=== PATIENT | female | born 1945 | race Caucasian/White ===

== ENCOUNTER 2017-10-20 12:26 | Emergency (ER) | payer MEDICARE, OTHER ==
[~2017-10-20] VITALS: Ht 154.9 cm; Wt 98.0 kg
[~2017-10-20 12:26] MED LIST: ASPIRIN EC81 MG PO; CELEBREX200 MG PO; CRESTOR20 MG PO; ECONAZOLE NITRA15 GM; FLUOXETINE HCL40 MG PO; FOLIC ACID1 MG PO; KETOCONAZOLE120 ML; METHOTREXATE2.5 MG PO; METOPROLOL SUCC25 MG PO; METOPROLOL TART25 MG PO; NORCO 7.5-3251 EACH PO; OMEPRAZOLE20 MG PO; OXYBUTYNIN CHLOR5 MG PO; PANTOPRAZOLE SO40 MG PO; PERCOCET 5-3251 EACH PO; PLAQUENIL200 MG PO; PREDNISONE5 MG PO; PROBIOTIC1 EAC1 PO; PYRIDIUM200 MG PO; REMICADE100 MG/10 IV; ROSUVASTATIN CA10 MG PO; SIMPONI AR50 MG/4 ML IV; SIMPONI50 MG/0.1 SUB-Q; TRAMADOL HCL50 MG; TRAMADOL HCL50 MG PO; ZOFRAN ODT8 MG PO
--- OUTSIDE RECORDS SUMMARY | 2017-10-20 12:28 | XMS ---
Demographics + + + | Address | [address] | | | [place] [address] | + + + | Preferred Language | Unknown | + + + | Marital Status | Unknown | + + + | Oriental Orthodox Affiliation | Unknown | + + + | Race | Unknown | + + + | Ethnic Group | Unknown | + + + Author + + + | Author | [facility] | + + + | Organization | [facility] | + + + | Address | [address] | | | [place] [address] | + + + | Phone | | + + + Care Team Providers + + + + | Care Model Dresser Name | Role | Phone | + + + + Unavailable | Unavailable | + + + + PROBLEMS +---------+ + + +--------+ + + | Type | Condition | ICD9-CM | [id number] | Onset | Condition | SNOMED | | | | Code | Code | Dates | Status | Code | +---------+ + + +--------+ + + | Problem | High risk | Z79.899 | | | Active | 394212080 | | | medication | | | | | | | | use | | | | | | +---------+ + + +--------+ + + | Problem | History of | Z86.19 | | | Active | 11295563 | | | | | | | | | | | Helicobact | | | | | | | | er pylori | | | | | | | | infection | | | | | | +---------+ + + +--------+ + + | Problem | Osteoporos | | M81.0 | | Active | 01485420 | | | is | | | | | | +---------+ + + +--------+ + + | Problem | Gastroesop | K21.9 | | | Active | 237915962 | | | hageal | | | | | | | | reflux | | | | | | +---------+ + + +--------+ + + | 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 | | | Active | 25251923 | | | cosis, | | | | | | | | progressiv | | | | | | | | e | | | | | | +---------+ + + +--------+ + + | Problem | Fatigue | | R53.83 | | Active | 01275198 | +---------+ + + +--------+ + + | Problem | ASCVD | I25.10 | | | Active | 29005028 | | | (arteriosc | | | | | | | | lerotic | | | | | | | | cardiovasc | | | | | | | | ular | | | | | | | | disease) | | | | | | +---------+ + + +--------+ + + | Problem | Early | | R68.81 | | Active | 290219312 | | | satiety | | | | | | +---------+ + + +--------+ + + | Problem | Postmenopa | | Z78.0 | | Active | 60746804 | | | usal | | | | | | +---------+ + + +--------+ + + | Problem | 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 | | | Active | 360580720 | | | ia | | | | | | +---------+ + + +--------+ + + | Problem | Solitary | | R91.1 | | Active | 682311173 | | | pulmonary | | | | | | | | nodule | | | | | | +---------+ + + +--------+ + + | Problem | Chronic | | G89.4 | | Active | 981289619 | | | pain | | | | | | | | syndrome | | | | | | +---------+ + + +--------+ + + | Problem | Stage III | N18.3 | | | Active | 592894817 | | | chronic | | | | | | | | kidney | | | | | | | | disease | | | | | | +---------+ + + +--------+ + + | Problem | Rheumatoid | M06.9 | | | Active | 23453997 | | | arthritis | | | | | | +---------+ + + +--------+ + + | Problem | Abnormal | R79.89 | | | Active | 554976474 | | | liver | | | | | | | | function | | | | | | | | test | | | | | | +---------+ + + +--------+ + + | Problem | Immunosupp | D89.9 | | | Active | 659861352 | | | ressed | | | | | | | | status | | | | | | +---------+ + + +--------+ + + | Problem | Depression | | F41.8 | | Active | 741328283 | | | with | | | | | | | | anxiety | | | | | | +---------+ + + +--------+ + + | Problem | Tubular | D12.6 | | | Active | 303601672 | | | adenoma of | | | | | | | | colon | | | | | | +---------+ + + +--------+ + + | Problem | Tinea | | B35.3 | | Active | 1587378 | | | pedis | | | | | | +---------+ + + +--------+ + + | Problem | Hypothyroi | | E03.9 | | Active | 33820812 | | | dism | | | | | | +---------+ + + +--------+ + + | Problem | Tubular | D36.9 | | | Active | 569208191 | | | adenoma | | | | | | +---------+ + + +--------+ + + | Problem | Nausea and | | R11.2 | | Active | 08256632 | | | vomiting | | | | | | +---------+ + + +--------+ + + | Problem | Hypertensi | | I10 | | Active | 67903731 | | | on | | | | | | +---------+ + + +--------+ + + | Problem | Eczematous | L30.9 | | | Active | 370825029 | | | | | | | | | | | dermatitis | | | | | | +---------+ + + +--------+ + + | Problem | Nummular | | L30.0 | | Active | 58642905 | | | dermatitis | | | | | | +---------+ + + +--------+ + + ALLERGIES + + + + +--------+ | Substance | Reaction | Event Type | Date | Status | + + + + +--------+ | Morphine | racing heart | Drug Allergy | May, | Active | + + + + +--------+ | Lipitor | hives | Drug Allergy | May, | Active | + + + + +--------+ SOCIAL HISTORY No smoking Hx information available PLAN OF CARE + +---------+ | Activity | Details | + +---------+ +---+ | | +---+ + + + | Follow Up | 2-4 Weeks Reason:null | + + + VITAL SIGNS + + + + | Height | 5 ft 1 in in | 2017-06-05 | + + + + | Weight | 218.9 lbs | 2017-06-05 | + + + + | BMI | 41.36 kg/m2 | 2017-06-05 | + + + + | Temperature | 98.0 degrees Fahrenheit | 2017-06-05 | + + + + | Heart Rate | 56 /min | 2017-06-05 | + + + + | Blood pressure systolic | 133 mm Hg | 2017-06-05 | + + + + | Blood pressure diastolic | 79 mm Hg | 2017-06-05 | + + + + MEDICATIONS + + + + + + + +--------+ | Medicati | Instruct | Dosage | Frequenc | Start | End Date | Duration | Status | | on | ions | | y | Date | | | | + + + + + + + +--------+ | Fosamax | Orally | 1 tablet | | Jan, | Jun, | 90 days | Active | | 70 MG | once a | | | 2016 | 2017 | | | | | week | | | | | | | + + + + + + + +--------+ | Oxybutyn | Orally | 1 tablet | 12h | | | | Active | | in | Twice a | | | | | | | | Chloride | day | | | | | | | | 5 MG | | | | | | | | + + + + + + + +--------+ | Aspirin | Orally | 1 tablet | 24h | | | | Active | | 81 mg | Once a | | | | | | | | | day | | | | | | | + + + + + + + +--------+ | Hydroxyc | Orally | 1 tablet | 24h | | | | Active | | hloroqui | Once a | with | | | | | | | ne | day | food or | | | | | | | Sulfate | | milk | | | | | | | 200 MG | | | | | | | | + + + + + + + +--------+ | Folic | Orally | 1 tablet | 24h | | | | Active | | Acid 1 | Once a | | | | | | | | MG | day | | | | | | | + + + + + + + +--------+ | Metoprol | Orally | 1 tablet | 12h | | | | Active | | ol | Twice a | | | | | | | | Tartrate | day | | | | | | | | 25 MG | | | | | | | | + + + + + + + +--------+ | PredniSO | Orally | 1 ml | 24h | | | | Active | | NE 5 | Once a | | | | | | | | MG/ML | day | | | | | | | + + + + + + + +--------+ | Rosuvast | Orally | 1 tablet | 24h | | | | Active | | atin | Once a | | | | | | | | Calcium | day | | | | | | | | 10 MG | | | | | | | | + + + + + + + +--------+ | Ondanset | | | | | | | Active | | corine 8 MG | | | | | | | | + + + + + + + +--------+ | Celecoxi | Orally | 1 | 24h | | | | Active | | b 200 MG | Once a | capsule | | | | | | | | day | | | | | | | + + + + + + + +--------+ | Pepcid | Orally | 1 tablet | 24h | 12 Lennox, | | 30 | Active | | 40 mg | Once a | | | 2016 | | day(s) | | | | day | | | | | | | + + + + + + + +--------+ | Tramadol | Orally | 1 tablet | 6h | | 16 Aug, | 30 days | Active | | HCl 50 | every 6 | as | | | 2016 | | | | mg | hrs | needed | | | | | | + + + + + + + +--------+ RESULTS + +--------+ + + | Name | Result | Date | Reference Range | + +--------+ + + | CBC with | | 2017-06-05 | | | Differential Count | | | | + +--------+ + + PROCEDURES + + + + + | Procedure | Date Ordered | Related Diagnosis | Body Site | + + + + + | Office Visit, Est | June 05, 2017 | | | | Pt., Level 3 | | | | + + + + + | [facility] MED/CURRENT | June 05, 2017 | | | | MED MERGE | | | | + + + + + IMMUNIZATIONS No Known Immunizations"
--- OUTSIDE RECORDS SUMMARY | 2017-10-20 12:28 | XMS ---
Demographics + + + | Address | [address] | | | [place] [address] | + + + | Preferred Language | Unknown | + + + | Marital Status | Unknown | + + + | Denominational Affiliation | Unknown | + + + | Race | Unknown | + + + | Ethnic Group | Unknown | + + + Author + + + | Author | [facility] | + + + | Organization | [facility] | + + + | Address | [address] | | | [place] [address] | + + + | Phone | | + + + Care Team Providers + + + + | Care Paddle Dyeing Machine Operator Name | Role | Phone | + + + + Unavailable | Unavailable | + + + + PROBLEMS +---------+ + + +--------+ + + | Type | Condition | ICD9-CM | [id number] | Onset | Condition | SNOMED | | | | Code | Code | Dates | Status | Code | +---------+ + + +--------+ + + | Problem | High risk | Z79.899 | | | Active | [id number] | | | medication | | | | | | | | use | | | | | | +---------+ + + +--------+ + + | Problem | History of | Z86.19 | | | Active | 73184329 | | | | | | | | | | | Helicobact | | | | | | | | er pylori | | | | | | | | infection | | | | | | +---------+ + + +--------+ + + | Problem | Osteoporos | | M81.0 | | Active | 23109898 | | | is | | | | | | +---------+ + + +--------+ + + | Problem | Gastroesop | K21.9 | | | Active | 215162892 | | | hageal | | | | | | | | reflux | | | | | | +---------+ + + +--------+ + + | 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 | | | Active | 66558275 | | | cosis, | | | | | | | | progressiv | | | | | | | | e | | | | | | +---------+ + + +--------+ + + | Problem | Fatigue | | R53.83 | | Active | 18898845 | +---------+ + + +--------+ + + | Problem | ASCVD | I25.10 | | | Active | 63908028 | | | (arteriosc | | | | | | | | lerotic | | | | | | | | cardiovasc | | | | | | | | ular | | | | | | | | disease) | | | | | | +---------+ + + +--------+ + + | Problem | Early | | R68.81 | | Active | 271220717 | | | satiety | | | | | | +---------+ + + +--------+ + + | Problem | Postmenopa | | Z78.0 | | Active | 30141060 | | | usal | | | | | | +---------+ + + +--------+ + + | Problem | 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 | | | Active | 922798721 | | | ia | | | | | | +---------+ + + +--------+ + + | Problem | Solitary | | R91.1 | | Active | 545949457 | | | pulmonary | | | | | | | | nodule | | | | | | +---------+ + + +--------+ + + | Problem | Chronic | | G89.4 | | Active | 275746098 | | | pain | | | | | | | | syndrome | | | | | | +---------+ + + +--------+ + + | Problem | Stage III | N18.3 | | | Active | 359499402 | | | chronic | | | | | | | | kidney | | | | | | | | disease | | | | | | +---------+ + + +--------+ + + | Problem | Rheumatoid | M06.9 | | | Active | 13169017 | | | arthritis | | | | | | +---------+ + + +--------+ + + | Problem | Abnormal | R79.89 | | | Active | 925233496 | | | liver | | | | | | | | function | | | | | | | | test | | | | | | +---------+ + + +--------+ + + | Problem | Immunosupp | D89.9 | | | Active | 321820218 | | | ressed | | | | | | | | status | | | | | | +---------+ + + +--------+ + + | Problem | Depression | | F41.8 | | Active | 926872609 | | | with | | | | | | | | anxiety | | | | | | +---------+ + + +--------+ + + | Problem | Tubular | D12.6 | | | Active | 688071261 | | | adenoma of | | | | | | | | colon | | | | | | +---------+ + + +--------+ + + | Problem | Tinea | | B35.3 | | Active | 2113301 | | | pedis | | | | | | +---------+ + + +--------+ + + | Problem | Hypothyroi | | E03.9 | | Active | 55570855 | | | dism | | | | | | +---------+ + + +--------+ + + | Problem | Tubular | D36.9 | | | Active | 834459318 | | | adenoma | | | | | | +---------+ + + +--------+ + + | Problem | Nausea and | | R11.2 | | Active | 76731528 | | | vomiting | | | | | | +---------+ + + +--------+ + + | Problem | Hypertensi | | I10 | | Active | 52784585 | | | on | | | | | | +---------+ + + +--------+ + + | Problem | Eczematous | L30.9 | | | Active | 067324452 | | | | | | | | | | | dermatitis | | | | | | +---------+ + + +--------+ + + | Problem | Nummular | | L30.0 | | Active | 21590262 | | | dermatitis | | | | | | +---------+ + + +--------+ + + ALLERGIES + + + + +--------+ | Substance | Reaction | Event Type | Date | Status | + + + + +--------+ | Morphine | racing heart | Drug Allergy | Jun, | Active | + + + + +--------+ | Lipitor | hives | Drug Allergy | Jun, | Active | + + + + +--------+ SOCIAL HISTORY No smoking Hx information available PLAN OF CARE + +---------+ | Activity | Details | + +---------+ +---+ | | +---+ + + + | Follow Up | 2 Months Reason:null | + + + VITAL SIGNS + + + + | Height | 5 ft 1 in in | 2017-07-05 | + + + + | Weight | 219.8 lbs | 2017-07-05 | + + + + | BMI | 41.53 kg/m2 | 2017-07-05 | + + + + | Temperature | 97.4 degrees Fahrenheit | 2017-07-05 | + + + + | Heart Rate | 55 /min | 2017-07-05 | + + + + | Blood pressure systolic | 140 mm Hg | 2017-07-05 | + + + + | Blood pressure diastolic | 82 mm Hg | 2017-07-05 | + + + + MEDICATIONS + [...] Pepcid | Orally | 1 tablet | 12h | 12 Lennox, | | 30 days | Active | | 40 mg | bid | | | 2017 | | | | + + + [...] +--------+ | Tramadol | Orally | 1 | 8h | 23 Jun, | 22 Sep, | 30 | Active | | HCl 50 | tid | tablets | | 2017 | 2017 | day(s) | | | mg | | as | | | | | | | | | needed | | | | | | | | | for pain | | | | | | + [...] | 1 tablet | | Jan, | 1 Jun, | 90 days | Active | | 70 MG | once a | | | 2017 | 2018 | | | | | week | [...] Range | + +--------+ + + | Basic Metabolic | | 2017-07-05 | | | Panel (8) | | | | + +--------+ + + | Calcium, Serum | | | | + +--------+ + + | Glucose, Serum | | | | + +--------+ + + | BUN | | | | + +--------+ + + | Potassium, Serum | | | | + +--------+ + + | Sodium, Serum | | | | + +--------+ + + | Chloride, Serum | | | | + +--------+ + + | Creatinine, Serum | | | | + +--------+ + + | Carbon Dioxide, | | | | | Total | | | | + +--------+ + + | BUN/Creatinine | | | | | Ratio | | | | + +--------+ + + PROCEDURES + + + + + | Procedure | Date Ordered | Related Diagnosis | Body Site | + + + + + | Office Visit, Est | Jul 05, 2017 | | | | Pt., Level 4 | | | | + + + + + | [facility] MED/CURRENT | Jul 05, 2017 | | | | MED MERGE | | | | + + + + + IMMUNIZATIONS No Known Immunizations"
--- OUTSIDE RECORDS SUMMARY | 2017-10-20 12:28 | XMS ---
Demographics + + + | Address | [address] | | | [place] [address] | + + + | Preferred Language | Unknown | + + + | Marital Status | Unknown | + + + | Mu-Ism Affiliation | Unknown | + + + | Race | Unknown | + + + | Ethnic Group | Unknown | + + + Author + + + | Author | [facility] | + + + | Organization | [facility] | + + + | Address | [address] | | | [place] [address] | + + + | Phone | | + + + Care Team Providers + + + + | Care Braille Proofreader Name | Role | Phone | + + + + Unavailable | Unavailable | + + + + PROBLEMS +---------+ + + +--------+ + + | Type | Condition | ICD9-CM | [id number] | Onset | Condition | SNOMED | | | | Code | Code | Dates | Status | Code | +---------+ + + +--------+ + + | Problem | High risk | Z79.899 | | | Active | 242214148 | | | medication | | | | | | | | use | | | | | | +---------+ + + +--------+ + + | Problem | History of | Z86.19 | | | Active | 90537577 | | | | | | | | | | | Helicobact | | | | | | | | er pylori | | | | | | | | infection | | | | | | +---------+ + + +--------+ + + | Problem | Osteoporos | | M81.0 | | Active | 09938349 | | | is | | | | | | +---------+ + + +--------+ + + | Problem | Gastroesop | K21.9 | | | Active | 575561043 | | | hageal | | | | | | | | reflux | | | | | | +---------+ + + +--------+ + + | 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 | | | Active | 57885697 | | | cosis, | | | | | | | | progressiv | | | | | | | | e | | | | | | +---------+ + + +--------+ + + | Problem | Fatigue | | R53.83 | | Active | 72418258 | +---------+ + + +--------+ + + | Problem | ASCVD | I25.10 | | | Active | 08184721 | | | (arteriosc | | | | | | | | lerotic | | | | | | | | cardiovasc | | | | | | | | ular | | | | | | | | disease) | | | | | | +---------+ + + +--------+ + + | Problem | Early | | R68.81 | | Active | 181035239 | | | satiety | | | | | | +---------+ + + +--------+ + + | Problem | Postmenopa | | Z78.0 | | Active | 33002596 | | | usal | | | | | | +---------+ + + +--------+ + + | Problem | 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 | | | Active | 631135430 | | | ia | | | | | | +---------+ + + +--------+ + + | Problem | Solitary | | R91.1 | | Active | 440124816 | | | pulmonary | | | | | | | | nodule | | | | | | +---------+ + + +--------+ + + | Problem | Chronic | | G89.4 | | Active | 580461685 | | | pain | | | | | | | | syndrome | | | | | | +---------+ + + +--------+ + + | Problem | Stage III | N18.3 | | | Active | 164580013 | | | chronic | | | | | | | | kidney | | | | | | | | disease | | | | | | +---------+ + + +--------+ + + | Problem | Rheumatoid | M06.9 | | | Active | 96900131 | | | arthritis | | | | | | +---------+ + + +--------+ + + | Problem | Abnormal | R79.89 | | | Active | 344498429 | | | liver | | | | | | | | function | | | | | | | | test | | | | | | +---------+ + + +--------+ + + | Problem | Immunosupp | D89.9 | | | Active | 658613169 | | | ressed | | | | | | | | status | | | | | | +---------+ + + +--------+ + + | Problem | Depression | | F41.8 | | Active | 850442539 | | | with | | | | | | | | anxiety | | | | | | +---------+ + + +--------+ + + | Problem | Tubular | D12.6 | | | Active | 330182312 | | | adenoma of | | | | | | | | colon | | | | | | +---------+ + + +--------+ + + | Problem | Tinea | | B35.3 | | Active | 6834724 | | | pedis | | | | | | +---------+ + + +--------+ + + | Problem | Hypothyroi | | E03.9 | | Active | 27978037 | | | dism | | | | | | +---------+ + + +--------+ + + | Problem | Tubular | D36.9 | | | Active | 136604896 | | | adenoma | | | | | | +---------+ + + +--------+ + + | Problem | Nausea and | | R11.2 | | Active | 79677232 | | | vomiting | | | | | | +---------+ + + +--------+ + + | Problem | Hypertensi | | I10 | | Active | 68784709 | | | on | | | | | | +---------+ + + +--------+ + + | Problem | Eczematous | L30.9 | | | Active | 048244312 | | | | | | | | | | | dermatitis | | | | | | +---------+ + + +--------+ + + | Problem | Nummular | | L30.0 | | Active | 41924657 | | | dermatitis | | | [...] + + + | Follow Up | 1 Week Reason:null | + + + VITAL SIGNS + + + + | Height | 5 ft 1 in in | 2017-05-29 | + + + + | Weight | 220.3 lbs | 2017-05-29 | + + + + | BMI | 41.62 kg/m2 | 2017-05-29 | + + + + | Temperature | 97.2 degrees Fahrenheit | 2017-05-29 | + + + + | Heart Rate | 57 /min | 2017-05-29 | + + + + | Blood pressure systolic | 124 mm Hg | 2017-05-29 | + + + + | Blood pressure diastolic | 74 mm Hg | 2017-05-29 | + + + + MEDICATIONS + [...] 1 tablet | 6h | | 16 Jun, | 30 days | Active | | [...] + + + + + +--------+ | Clindamy | Orally | 3 | 8h | | | | Active | | sierra HCl | three | capsules | | | | | | | 150 MG | times a | | | | | | [...] mg | Once a | | | 2017 | | day(s) | | | | [...] + + + + + +--------+ | Cephalex | Orally | 2 tablet | 24h | | | | Active | | in 500 | once | | | | | | | | MG | daily | | | | | | | [...] + + + + + +--------+ RESULTS No Results PROCEDURES + + + + + | Procedure | Date Ordered | Related Diagnosis | Body Site | + + + + + | Office Visit, Est | May 29, 2017 | | | | Pt., Level 3 | | | | + + + + + | [facility] MED/CURRENT | May 29, 2017 | | | | MED MERGE | | | | + + + + + IMMUNIZATIONS No Known Immunizations"
--- OUTSIDE RECORDS SUMMARY | 2017-10-20 12:44 | XMS ---
Demographics + + + | Address | [address] | | | [place] [address] | + + + | Preferred Language | Unknown | + + + | Marital Status | Unknown | + + + | Islam Affiliation | Unknown | + + + | Race | Unknown | + + + | Ethnic Group | Unknown | + + + Author + + + | Author | [facility] | + + + | Organization | [facility] | + + + | Address | [address] | | | [place] [address] | + + + | Phone | | + + + Care Team Providers + + + + | Care Scalder Name | Role | Phone | + + + + Unavailable | Unavailable | + + + + PROBLEMS +---------+ + + +--------+ + + | Type | Condition | ICD9-CM | [id number] | Onset | Condition | SNOMED | | | | Code | Code | Dates | Status | Code | +---------+ + + +--------+ + + | Problem | High risk | Z79.899 | | | Active | 622783215 | | | medication | | | | | | | | use | | | | | | +---------+ + + +--------+ + + | Problem | History of | Z86.19 | | | Active | 75243048 | | | | | | | | | | | Helicobact | | | | | | | | er pylori | | | | | | | | infection | | | | | | +---------+ + + +--------+ + + | Problem | Osteoporos | | M81.0 | | Active | 75472457 | | | is | | | | | | +---------+ + + +--------+ + + | Problem | Gastroesop | K21.9 | | | Active | 689264341 | | | hageal | | | | | | | | reflux | | | | | | +---------+ + + +--------+ + + | 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 | | | Active | 86390737 | | | cosis, | | | | | | | | progressiv | | | | | | | | e | | | | | | +---------+ + + +--------+ + + | Problem | Fatigue | | R53.83 | | Active | 82984205 | +---------+ + + +--------+ + + | Problem | ASCVD | I25.10 | | | Active | 61577391 | | | (arteriosc | | | | | | | | lerotic | | | | | | | | cardiovasc | | | | | | | | ular | | | | | | | | disease) | | | | | | +---------+ + + +--------+ + + | Problem | Early | | R68.81 | | Active | 451918728 | | | satiety | | | | | | +---------+ + + +--------+ + + | Problem | Postmenopa | | Z78.0 | | Active | 04303947 | | | usal | | | | | | +---------+ + + +--------+ + + | Problem | 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 | | | Active | 424275134 | | | ia | | | | | | +---------+ + + +--------+ + + | Problem | Solitary | | R91.1 | | Active | 784211254 | | | pulmonary | | | | | | | | nodule | | | | | | +---------+ + + +--------+ + + | Problem | Chronic | | G89.4 | | Active | 411972872 | | | pain | | | | | | | | syndrome | | | | | | +---------+ + + +--------+ + + | Problem | Stage III | N18.3 | | | Active | 529869143 | | | chronic | | | | | | | | kidney | | | | | | | | disease | | | | | | +---------+ + + +--------+ + + | Problem | Rheumatoid | M06.9 | | | Active | 09068787 | | | arthritis | | | | | | +---------+ + + +--------+ + + | Problem | Abnormal | R79.89 | | | Active | 585354881 | | | liver | | | | | | | | function | | | | | | | | test | | | | | | +---------+ + + +--------+ + + | Problem | Immunosupp | D89.9 | | | Active | 351851771 | | | ressed | | | | | | | | status | | | | | | +---------+ + + +--------+ + + | Problem | Depression | | F41.8 | | Active | 279687097 | | | with | | | | | | | | anxiety | | | | | | +---------+ + + +--------+ + + | Problem | Tubular | D12.6 | | | Active | 263756086 | | | adenoma of | | | | | | | | colon | | | | | | +---------+ + + +--------+ + + | Problem | Tinea | | B35.3 | | Active | 7093383 | | | pedis | | | | | | +---------+ + + +--------+ + + | Problem | Hypothyroi | | E03.9 | | Active | 64750038 | | | dism | | | | | | +---------+ + + +--------+ + + | Problem | Tubular | D36.9 | | | Active | 841955609 | | | adenoma | | | | | | +---------+ + + +--------+ + + | Problem | Nausea and | | R11.2 | | Active | 38095628 | | | vomiting | | | | | | +---------+ + + +--------+ + + | Problem | Hypertensi | | I10 | | Active | 84806943 | | | on | | | | | | +---------+ + + +--------+ + + | Problem | Eczematous | L30.9 | | | Active | 269005160 | | | | | | | | | | | dermatitis | | | | | | +---------+ + + +--------+ + + | Problem | Nummular | | L30.0 | | Active | 45939838 | | | dermatitis | | | | | | +---------+ + + +--------+ + + ALLERGIES Unknown Allergies SOCIAL HISTORY No smoking Hx information available PLAN OF CARE VITAL SIGNS MEDICATIONS Unknown Medications RESULTS No Results PROCEDURES No Known procedures IMMUNIZATIONS No Known Immunizations"
--- OUTSIDE RECORDS SUMMARY | 2017-10-20 12:44 | XMS ---
Demographics + + + | Address | [address] | | | [place] [address] | + + + | Preferred Language | Unknown | + + + | Marital Status | Unknown | + + + | Hoahaoism Affiliation | Unknown | + + + | Race | Unknown | + + + | Ethnic Group | Unknown | + + + Author + + + | Author | [facility] | + + + | Organization | [facility] | + + + | Address | [address] | | | [place] [address] | + + + | Phone | | + + + Care Team Providers + + + + | Care Hand Tile Maker Name | Role | Phone | + + + + Unavailable | Unavailable | + + + + PROBLEMS +---------+ + + +--------+ + + | Type | Condition | ICD9-CM | [id number] | Onset | Condition | SNOMED | | | | Code | Code | Dates | Status | Code | +---------+ + + +--------+ + + | Problem | High risk | Z79.899 | | | Active | [id number] | | | medication | | | | | | | | use | | | | | | +---------+ + + +--------+ + + | Problem | History of | Z86.19 | | | Active | [id number] | | | | | | | | 4926138 | | | Helicobact | | | | | | | | er pylori | | | | | | | | infection | | | | | | +---------+ + + +--------+ + + | Problem | Osteoporos | | M81.0 | | Active | 84524430 | | | is | | | | | | +---------+ + + +--------+ + + | Problem | Gastroesop | K21.9 | | | Active | 552522516 | | | hageal | | | | | | | | reflux | | | | | | +---------+ + + +--------+ + + | 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 | | | Active | 17604778 | | | cosis, | | | | | | | | progressiv | | | | | | | | e | | | | | | +---------+ + + +--------+ + + | Problem | Fatigue | | R53.83 | | Active | 71794016 | +---------+ + + +--------+ + + | Problem | ASCVD | I25.10 | | | Active | 92504174 | | | (arteriosc | | | | | | | | lerotic | | | | | | | | cardiovasc | | | | | | | | ular | | | | | | | | disease) | | | | | | +---------+ + + +--------+ + + | Problem | Early | | R68.81 | | Active | 481315065 | | | satiety | | | | | | +---------+ + + +--------+ + + | Problem | Postmenopa | | Z78.0 | | Active | 76538541 | | | usal | | | | | | +---------+ + + +--------+ + + | Problem | 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 | | | Active | 438132475 | | | ia | | | | | | +---------+ + + +--------+ + + | Problem | Solitary | | R91.1 | | Active | 539742572 | | | pulmonary | | | | | | | | nodule | | | | | | +---------+ + + +--------+ + + | Problem | Chronic | | G89.4 | | Active | 937282550 | | | pain | | | | | | | | syndrome | | | | | | +---------+ + + +--------+ + + | Problem | Stage III | N18.3 | | | Active | 424629160 | | | chronic | | | | | | | | kidney | | | | | | | | disease | | | | | | +---------+ + + +--------+ + + | Problem | Rheumatoid | M06.9 | | | Active | 99327076 | | | arthritis | | | | | | +---------+ + + +--------+ + + | Problem | Abnormal | R79.89 | | | Active | 878490433 | | | liver | | | | | | | | function | | | | | | | | test | | | | | | +---------+ + + +--------+ + + | Problem | Immunosupp | D89.9 | | | Active | 773928575 | | | ressed | | | | | | | | status | | | | | | +---------+ + + +--------+ + + | Problem | Depression | | F41.8 | | Active | 556477776 | | | with | | | | | | | | anxiety | | | | | | +---------+ + + +--------+ + + | Problem | Tubular | D12.6 | | | Active | 321136833 | | | adenoma of | | | | | | | | colon | | | | | | +---------+ + + +--------+ + + | Problem | Tinea | | B35.3 | | Active | 8989463 | | | pedis | | | | | | +---------+ + + +--------+ + + | Problem | Hypothyroi | | E03.9 | | Active | 59271819 | | | dism | | | | | | +---------+ + + +--------+ + + | Problem | Tubular | D36.9 | | | Active | 05257996 | | | adenoma | | | | | | +---------+ + + +--------+ + + | Problem | Nausea and | | R11.2 | | Active | 85769334 | | | vomiting | | | | | | +---------+ + + +--------+ + + | Problem | Hypertensi | | I10 | | Active | 30364369 | | | on | | | | | | +---------+ + + +--------+ + + | Problem | Eczematous | L30.9 | | | Active | 712299238 | | | | | | | | | | | dermatitis | | | | | | +---------+ + + +--------+ + + | Problem | Nummular | | L30.0 | | Active | 62653332 | | | dermatitis | | | | | | +---------+ + + +--------+ + + ALLERGIES No Information SOCIAL HISTORY Never Assessed PLAN OF CARE VITAL SIGNS MEDICATIONS Unknown Medications RESULTS No Results PROCEDURES + + +--------+ + | Procedure | Date Ordered | Result | Body Site | + + +--------+ + | Influenza Medicare | Aug 18, 2017 | | | + + +--------+ + | ADMN FLU VAC | Aug 18, 2017 | | | + + +--------+ + IMMUNIZATIONS + + + + + | Vaccine | Route | Administration Date | Status | + + + + + | Influenza Medicare | IM Intramuscular | Aug 18, 2017 | Administered | + + + + + MEDICAL (GENERAL) HISTORY + + +-------+ | Type | Description | Date | + + +-------+ | Medical History | rheumatoid arthritis: | | | | 03/08/2016 3:50:57 PM > | | | | rheumatology | | | | appointment [facility], | | | | golimumab 200MG | | + + +-------+ | Medical History | abnormal liver associated | | | | tests | | + + +-------+ | Medical History | chronic constipation | | + + +-------+ | Medical History | ASCVD | | + + +-------+ | Medical History | early satiety | | + + +-------+ | Medical History | fatigue, chronic | | + + +-------+ | Medical History | gastroesophageal reflux | | + + +-------+ | Medical History | history of helical Dr. | | | | pylori | | + + +-------+ | Medical History | hypertension | | + + +-------+ | Medical History | history of chronic nausea | | | | and vomiting | | + + +-------+ | Medical History | R. eczematous dermatitis | | + + +-------+ | Medical History | tinea pedis | | + + +-------+ | Medical History | tubular adenoma of the | | | | colon | | + + +-------+ | Medical History | previously on methotrexate | | + + +-------+ | Medical History | 2012: LEFT leg fracture, | | | | severe, TKR [facility]. | | + + +-------+ | Medical History | 2013: [place] Fever: | | | | Cocciodiodes. Patient was | | | | immunosuppressed | | + + +-------+ | Medical History | hypothyroidism with a TSH | | | | of 4.97 and a T4 of 1.15. | | + + +-------+ | Medical History | echo 05/17/16: LVEF 55-60%, | | | | grade 1 diastolic | | | | abnormality, sclerotic | | | | aortic valve, mild nodular | | | | calcification of the mitral | | | | valve, | | + + +-------+ | Medical History | 05/20/16: ERCP: Jazmyne, | | | | Quinn, impacted | | | | gallstone (s/p choly) | | + + +-------+ | Medical History | Started [facility] for RA | | + + +-------+ | Medical History | 09/10/16-09/12/16: [facility] | | | | admission Dr. Meyer: | | | | Immunosuppressant | | | | medications | | | | Simponi/golimumab for her | | | | rheumatoid arthritis: | | | | Sepsis secondary to viral | | | | etiology in the setting of | | | | immunosuppressant | | | | medication, other comorbid | | | | conditions: Acute | | | | dehydration, hypokalemia, | | | | chronic kidney disease | | | | stage III, incidental | | | | pulmonary nodule. | | | | Temperature of 102.3, | | | | pneumobilia and CT scan of | | | | the abdomen after recent | | | | ERCP for biliary stones. 5 | | | | mm pulmonary nodule right | | | | middle lobe. Treated with | | | | Zosyn transition to | | | | cefepime, rehydration, | | | | replace the potassium. | | | | Patient also on | | | | hydroxychloroquine, | | | | methotrexate, tramadol. | | + + +-------+ | Medical History | chronic pain syndrome: | | | | Severe osteoarthritis. On | | | | Ultram, currently | | | | prescribed by this office. | | + + +-------+ | Medical History | 12/26/16: [facility], negative | | | | mammogram | | + + +-------+ | Medical History | 12/26/16 Nrmal mammogram | | + + +-------+ | Medical History | 02/02/2017 3:20:02 PM > | | | | osteoporosis by DEXA scan, | | | | [facility] | | + + +-------+ | Surgical History | L Leg Surgery | | + + +-------+ | Surgical History | Stent placed | 12/20 | + + +-------+ | Surgical History | Kidney Stone Removal | | + + +-------+ | Surgical History | Appendectomy | | + + +-------+ | Surgical History | Cholesystecomy | | + + +-------+ | Surgical History | Hernia Repair | | + + +-------+ | Surgical History | lymph nodes removed from | | | | left armpit | | + + +-------+ | Hospitalization History | Natural Child x3 | | + + +-------+ | Hospitalization History | See Above | | + + +-------+ | Hospitalization History | High temperture, vomiting | | + + +-------+ | Hospitalization History | ER visit [facility] | 04-17 | + + +-------+"
== END 2017-10-20 13:30 | disposition home or self-care (01) ==
LOC: ED 12:26
DX: S80.11XA Contusion of right lower leg, initial encounter (principal); M06.9 Rheumatoid arthritis, unspecified; I10 Essential (primary) hypertension; Z88.5 Allergy status to narcotic agent; Z88.8 Allergy status to other drugs, medicaments and biological substances; Z79.82 Long term (current) use of aspirin; W22.8XXA Striking against or struck by other objects, initial encounter; Z90.49 Acquired absence of other specified parts of digestive tract; Z79.52 Long term (current) use of systemic steroids; Z79.899 Other long term (current) drug therapy
CPT/HCPCS: 99282

== ENCOUNTER 2019-01-03 02:36 | Emergency (ER) | payer MEDICARE, OTHER ==
[~2019-01-03] VITALS: Ht 154.9 cm; Wt 98.0 kg
--- OUTSIDE RECORDS SUMMARY | 2019-01-03 02:40 | XMS ---
PreManage Notification: AKIN ALBERT Security Drug Abuse Technician Events No recent Security Events currently on file CRITERIA MET - SUDHAP CARE PROVIDERS Kishan Campos Primary Care Omayra MORRIS PHONE: Unknown orobed Case or Nipping Machine Operator Current PHONE: Unknown Donte Virginia Silvia Current Orthopedic Surgery \T\ Fracture [facility] PHONE: Unknown Primary Care Primary Care Current PHONE: Unknown Dennise has no Care Guidelines for this patient. Oliver VISIT COUNT (12 MO.) 1 ROBYN Bowman TOTAL 1 NOTE: Visits indicate total known visits. ED/UCC VISIT TRACKING (12 MO.) 01/03/2019 02:37 ROBYN Schaeffer OR TYPE: Emergency COMPLAINT: - ABD PAIN INPATIENT VISIT TRACKING (12 MO.) No inpatient visits to display in this time frame [email or web address]
[2019-01-03] MEDS ORDERED: KEFLEX500 MG PO (05:41)
[2019-01-03] MEDS ORDERED: NORCO 5-325 TA1 EACH PO (05:41)
== END 2019-01-03 05:55 | disposition home or self-care (01) ==
LOC: ED 02:36
DX: N39.0 Urinary tract infection, site not specified (principal); M06.9 Rheumatoid arthritis, unspecified; F32.9 Major depressive disorder, single episode, unspecified; I10 Essential (primary) hypertension; Z95.5 Presence of coronary angioplasty implant and graft; Z90.49 Acquired absence of other specified parts of digestive tract; Z88.8 Allergy status to other drugs, medicaments and biological substances; Z88.5 Allergy status to narcotic agent; Z79.82 Long term (current) use of aspirin; Z79.899 Other long term (current) drug therapy
CPT/HCPCS: 74177; 80053; 81001; 83690; 85025; 87077; 87088; 87186; 96374; 99284-25; J2405; J7030; Q9967

== ENCOUNTER 2020-09-11 21:20 | Emergency (ER) | payer MEDICARE, OTHER ==
[~2020-09-11] VITALS: Ht 154.9 cm; Wt 98.0 kg
[~2020-09-11 21:20] MED LIST changes: +KEFLEX500 MG PO; +NORCO 5-325 TA1 EACH PO
[2020-09-11] MEDS ORDERED: LEFLUNOMIDE10 MG PO (21:49)
[2020-09-11] MEDS ORDERED: METHOTREXA25 MG/1 ML INJ (21:49)
[2020-09-12] MEDS ORDERED: LEVOFLOXACIN750 MG PO (00:31)
== END 2020-09-12 01:43 | disposition home or self-care (01) ==
LOC: ED 21:20
DX: J20.9 Acute bronchitis, unspecified (principal); M79.89 Other specified soft tissue disorders; Z20.828 Contact with and (suspected) exposure to other viral communicable diseases; F32.9 Major depressive disorder, single episode, unspecified; I10 Essential (primary) hypertension; Z88.8 Allergy status to other drugs, medicaments and biological substances; Z88.5 Allergy status to narcotic agent; Z79.899 Other long term (current) drug therapy; Z79.52 Long term (current) use of systemic steroids; Z79.82 Long term (current) use of aspirin
CPT/HCPCS: 71045; 80053; 81001; 83605; 85025; 85610; 85730; 93971; 96374; 99284-25; C9803; J2405

== ENCOUNTER 2022-01-24 07:40 | Day surgery (SDC) | payer MEDICARE, OTHER ==
[~2022-01-24] VITALS: Ht 154.9 cm; Wt 91.0 kg
[~2022-01-24 07:40] MED LIST changes: +LEFLUNOMIDE10 MG PO; +LEVOFLOXACIN750 MG PO; +METHOTREXA25 MG/1 ML INJ; +PRILOSEC OTC20 MG PO
[2022-01-24] MEDS ORDERED: LEUCOVORIN CALCI5 MG PO (08:17)
[2022-01-24] MEDS ORDERED: CRESTOR10 MG PO (08:22)
[2022-01-24] MEDS ORDERED: TRAMADOL HCL50 MG PO (09:26)
--- NOTE | 2022-01-24 09:53 | NUR ---
01/24/22 0953 Hailey Wu 0949- PT ARRIVES TO PACU NONAROUSABLE TO STIMULI. RESP EVEN AND UNLABORED. OXYGEN SAT HIGH 90'S TO 100% ON 6L VIA MASK. ICE PACK APPLIED TO PT'S LEFT WRIST/HAND.
--- NOTE | 2022-01-24 11:16 | OR ---
[facility] [address] [place], [place] [address] Signed DATE OF OPERATION: 01/24/2022 SURGEON: Octaviano Campos MD PREOPERATIVE DIAGNOSIS: Carpal tunnel syndrome, severe, left. POSTOPERATIVE DIAGNOSIS: Carpal tunnel syndrome, severe, left. PROCEDURE PERFORMED: Carpal tunnel release, left. HYDROTREATER OPERATOR: None. ANESTHESIA: Arma block. TOURNIQUET TIME: 20 minutes. BRIEF HISTORY: Akin is a 76-year-old with progressive worsening of numbness and pain in her both hands. She had nerve conduction studies, which showed almost no nerve conduction distally. Risks and benefits of operative treatment to try to preserve remaining nerve function were discussed with her and she elected to proceed. DESCRIPTION OF PROCEDURE: Once consent was obtained, she was taken to the operating room. After adequate anesthesia, she was placed on the operating room bed with a hand table. The arm was prepped and draped in a standard sterile fashion. The carpal tunnel was then approached through a transverse 1.5 cm incision in the distal wrist crease. This was carried through skin and subcutaneous tissue. The palmaris longus was identified, retracted and protected. The transverse carpal ligament was identified and cleared of soft tissue on its volar surface under loupe magnification. Using tenotomy scissors it was then released proximally a cm and distally to the distal extent. This was then palpated using the [place] and found to be completely released. Wounds copiously irrigated with normal saline, closed with 3-0 nylon and injected with a mL 0.25% plain Marcaine. The wound was Electronically Signed By: OCTAVIANO CAMPOS MD 01/24/22 1116 PATIENT NAME: AKIN ALBERT OPERATIVE REPORT DATE OF : 45 REPORT #: [id number] PHYSICIAN: OCTAVIANO CAMPOS MD PCP: LOREE JESUS MD REPORT IS CONFIDENTIAL AND NOT TO BE RELEASED WITHOUT AUTHORIZATION [facility] [address] [facility] [place] [address] Signed dressed with bacitracin, Adaptic 4 x 8s, and gauze. She tolerated the procedure well. All sponge, needle, and instrument counts were correct. Octaviano Campos MD BA/MODL /[id number] Copies: ~ Electronically Signed By: OCTAVIANO CAMPOS MD 01/24/22 1116 PATIENT NAME: AKIN ALBERT OPERATIVE REPORT DATE OF : 45 REPORT #: [id number] PHYSICIAN: OCTAVIANO CAMPOS MD PCP: LOREE JESUS MD REPORT IS CONFIDENTIAL AND NOT TO BE RELEASED WITHOUT AUTHORIZATION
== END 2022-01-24 10:42 | disposition home or self-care (01) ==
LOC: DS 07:40
PROVIDERS: ATTEND Specialist
PROC: 01N50ZZ Release Median Nerve, Open Approach (ICD-10-PCS; principal; 2022-01-24 09:30)
DX: G56.02 Carpal tunnel syndrome, left upper limb (principal); Z88.5 Allergy status to narcotic agent; Z88.8 Allergy status to other drugs, medicaments and biological substances
CPT/HCPCS: J0690; J2704; J7121

== ENCOUNTER 2022-11-11 05:45 | Day surgery (SDC) | payer MEDICARE, OTHER ==
[~2022-11-11] VITALS: Ht 154.9 cm; Wt 88.6 kg
[~2022-11-11 05:45] MED LIST changes: +CRESTOR10 MG PO; +LEUCOVORIN CALCI5 MG PO; +TYLOPHEN500 MG PO
[2022-11-11] MEDS ORDERED: HYDROCODON-ACE1 EA10 PO (07:31)
--- NOTE | 2022-11-11 07:33 | NUR ---
11/11/22 0733 Peace Hodgson 0793 PT ARRIVED TO PACU ON 10L VIA MASK, PT WAKES EASILY AND IS REORIENTED TO PACU. PT EASILY FALLS BACK TO SLEEP. ICE PLACED ON SURGICAL SITE. 0729 O2 DECREASED TO 6L.
--- NOTE | 2022-11-11 17:25 | EKG ---
[facility] [address] [facility] [place] [address] Signed Sinus bradycardia Right axis deviation Abnormal ECG When compared with ECG of 20-JAN-2022 13:31, QRS axis shifted right Non-specific change in ST segment in Lateral leads Confirmed by SAVANNA BLUM MD ([id number]) on 11/11/2022 5:25:09 PM Electronically Signed By: SAVANNA BLUM MD 11/11/22 1725 PATIENT NAME: AKIN ALBERTU Electrocardiogram DATE OF : 45 PHYSICIAN: SAVANNA BLUM MD REPORT #: [id number] REPORT IS CONFIDENTIAL AND NOT TO BE RELEASED WITHOUT AUTHORIZATION
--- NOTE | 2022-11-12 09:43 | OR ---
[facility] [address] [place], [place] [address] Signed DATE OF OPERATION: 11/11/2022 SURGEON: Octaviano Campos MD PREOPERATIVE DIAGNOSIS: Carpal tunnel syndrome, right. POSTOPERATIVE DIAGNOSIS: Carpal tunnel syndrome, right. PROCEDURE PERFORMED: Right carpal tunnel release. ARMOR RECONNAISSANCE VEHICLE DRIVER: None. ANESTHESIA: Umair block. TOURNIQUET TIME: 20 minutes. BRIEF HISTORY: Akin is a 77-year-old female with progressive worsening of numbness and tingling in the right hand. She had undergone successful left release many years ago. Risks and benefits of operative treatment were discussed with her and she elected to proceed. PROCEDURE IN DETAIL: Once consent was obtained, she was taken to the operating room. After adequate anesthesia, she was left on day surgery bed and a hand table was brought in. The arm was prepped and draped in a standard sterile fashion. The carpal tunnel was approached through a 1.5 cm incision in the distal wrist crease. This was carried through the skin and subcutaneous tissue and directly down the transverse carpal ligament. The transverse carpal ligament was identified under loupe magnification and was released proximally and distally such that the median nerve was completely decompressed. The canal was palpated using a [place] and found to be completely released. The wound was copiously irrigated with normal saline, closed with 3-0 nylon and infiltrated with 7 mL of 0.25% Marcaine plain. The wound was then dressed with bacitracin, Adaptic, 4 x 8s, and gauze. She tolerated the procedure well. All sponge, needle, and instrument counts were correct. Electronically Signed By: OCTAVIANO CAMPOS MD 11/12/22 0943 PATIENT NAME: AKIN ALBERT OPERATIVE REPORT DATE OF : 45 REPORT #: [id number] PHYSICIAN: OCTAVIANO CAMPOS MD PCP: LOREE JESUS MD REPORT IS CONFIDENTIAL AND NOT TO BE RELEASED WITHOUT AUTHORIZATION [address] [address] Signed Octaviano Campos MD BA/HA /[id number] Copies: ~ Electronically Signed By: OCTAVIANO CAMPOS MD 11/12/22 0943 PATIENT NAME: AKIN ALBERT OPERATIVE REPORT DATE OF : 45 REPORT #: [id number] PHYSICIAN: OCTAVIANO CAMPOS MD PCP: LOREE JESUS MD REPORT IS CONFIDENTIAL AND NOT TO BE RELEASED WITHOUT AUTHORIZATION
== END 2022-11-11 08:10 | disposition home or self-care (01) ==
LOC: DS 05:45
PROVIDERS: ATTEND Specialist
PROC: 01N50ZZ Release Median Nerve, Open Approach (ICD-10-PCS; principal; 2022-11-11 07:30)
DX: G56.01 Carpal tunnel syndrome, right upper limb (principal); Z88.5 Allergy status to narcotic agent; Z88.8 Allergy status to other drugs, medicaments and biological substances; M06.9 Rheumatoid arthritis, unspecified; Z95.5 Presence of coronary angioplasty implant and graft; I25.10 Atherosclerotic heart disease of native coronary artery without angina pectoris; Z79.82 Long term (current) use of aspirin; E78.5 Hyperlipidemia, unspecified; N18.30 Chronic kidney disease, stage 3 unspecified; I12.9 Hypertensive chronic kidney disease with stage 1 through stage 4 chronic kidney disease, or unspecified chronic kidney disease
CPT/HCPCS: 93005; 93010; J0690; J1100; J1885; J2250; J2405; J2704; J2765; J3010; J7121

== ENCOUNTER 2023-11-16 10:52 | Day surgery (SDC) | payer MEDICARE, OTHER ==
--- NOTE | 2023-11-01 09:29 | NUR ---
0925: PT ARRIVES TO UNIT AMBULATORY FOR SCHED EVINITY INJ. PLACED IN ROOM 13. PHARMACY NOTIFIED OF PT ARRIVAL AND LAB CONTACTED FOR DRAW 0927: BLENDER/BRAZE APPLICATOR AT THE BEDSIDE TO COLLECT LABWORK ORDERED
[2023-11-01 09:57] LABS: BUN/CREATININE RATIO 26.25 (6.0-28.6); CALCIUM 8.3 mg/dL (8.5-10.1); CREATININE, SERUM 0.8 mg/dL (0.55-1.02)
[2023-11-02 13:36] LABS: VITAMIN D 25 OH 29 ng/mL (30-80)
[2023-11-09 09:44] VITALS: BP 128/87
[~2023-11-16] VITALS: Ht 154.9 cm; Wt 88.1 kg
[~2023-11-16 10:52] MED LIST changes: +EVENITY105 MG/1.1; +HYDROCODON-ACE1 EA10 PO
[2023-11-16 11:13] VITALS: BP 144/64
--- NOTE | 2023-11-16 12:22 | NUR ---
11/16/23 1221 Rema,Peace 1217 PT WOKE AND REPORTS "MY NAP WASN'T LONG ENCOUGH." PT REORIENTED TO PACU AND EASILY FALLS BACK TO SLEEP. PT ON 4L VIA NC, RESP EVEN AND UNLABORED.
[2023-11-16 12:45] VITALS: BP 124/60
--- NOTE | 2023-11-17 18:06 | OR ---
[facility] [address] [place], [place] [address] Signed DATE OF OPERATION: 11/16/2023 SURGEON: Wolf Garcia MD PREOPERATIVE DIAGNOSES: 1. Family history of colon cancer (daughter). 2. Episodes of incontinence and loose bowel movements, occasions of diarrhea. POSTOPERATIVE DIAGNOSES: Extensive sigmoid and left-sided diverticulosis. No other abnormality of note. PROCEDURE: Total colonoscopy to cecum with biopsy of cecum and rectum. ANESTHESIA: Intravenous sedation, propofol infusion, Adamaris Mercado CRNA. INDICATION: This 78-year-old white woman has considerable frailty. She is a patient of Dr. Guillen. She does have family history of colon cancer in a daughter who of the disease. She has had loose bowel movements and episodes of incontinence on occasion. She does have a history of coronary artery disease, but no current complaints of chest pain or exertional dyspnea. She has undergone coronary stenting in the past and has had joint replacement therapy in the past. She is admitted at this time to undergo colonoscopy on the basis of her family history and her symptoms. She understands the risk of bleeding, infection, and perforation and wished to proceed. FINDINGS: The prep was good. Complete colonoscopy was undertaken of the cecum without question. Biopsies were taken of the cecum and the rectum to assess for occult colitis but there was no gross evidence of that. She had extensive diverticular changes of the sigmoid and left colon and scattered diverticula more proximally. DESCRIPTION OF PROCEDURE: The patient was brought to the endoscopy suite and placed in the lateral decubitus position and given intravenous sedation with propofol infusional sedation by the brick and blocker aid labor. Full cardiopulmonary monitoring was maintained as usual. Digital rectal examination was normal. An Olympus video colonoscope was passed in the rectum and manipulated throughout the Electronically Signed By: WOLF GARCIA MD 11/17/23 1806 PATIENT NAME: AKIN ALBERT OPERATIVE REPORT DATE OF : 45 REPORT #: [id number] PHYSICIAN: WOLF GARCIA MD PCP: ADEN GUILLEN MD REPORT IS CONFIDENTIAL AND NOT TO BE RELEASED WITHOUT AUTHORIZATION [facility] [address] [place], [place] [address] Signed colon ultimately intubating the cecum itself. Numerous diverticula were seen along the way. Once the cecum was fully intubated, biopsies were taken of the cecum to assess for occult colitis, though there was no gross evidence of that. The scope was then withdrawn and careful examination throughout showed no sign of abnormality in the right colon or transverse, but significant diverticulosis on the left side. Retroflexed view of the rectum was essentially normal other than internal hemorrhoidal changes. Biopsies were taken of the rectum to assess for occult colitis also. The scope was removed and the patient was taken to the recovery room in good condition. CONCLUDING DIAGNOSIS: Diverticulosis, extensive. PLAN: Would recommend Citrucel powder one scoop p.o. daily for symptom control at this time. She will return to the ongoing care of Dr. Guillen. A repeat colonoscopy in 5 years would be appropriate if she is clinically well enough for that. This is based on her family history of colon cancer in a first-degree relative (daughter). MD YOLI Quach/KELECHIL /[id number] cc: Aden Guillen MD Copies: ADEN GUILLEN MD ~ Electronically Signed By: WOLF GARCIA MD 11/17/23 1806 PATIENT NAME: AKIN ALBERT OPERATIVE REPORT DATE OF : 45 REPORT #: [id number] PHYSICIAN: WOLF GARCIA MD PCP: ADEN GUILLEN MD REPORT IS CONFIDENTIAL AND NOT TO BE RELEASED WITHOUT AUTHORIZATION
--- NOTE | 2023-11-22 16:02 | PATH ---
[facility] [address] [place], [place] [address] Signed SPECIMEN(S): A CECUM COLON BIOPSY SPECIMEN(S): B RECTUM BIOPSY SPECIMEN SOURCE: A. CECUM COLON BIOPSY B. RECTUM BIOPSY CLINICAL HISTORY: Preop: Fecal incontinence with urgency, family history of colon cancer, history of colon polyps. Postop: Diverticulosis (extensive). FINAL PATHOLOGIC DIAGNOSIS: A. Cecum colon biopsy: - Benign colonic mucosa, negative for specific diagnostic abnormality. B. Rectum biopsy: - Benign colonic mucosa with slight hyperplastic features. - Negative for pathologic inflammation. JVR:clv MICROSCOPIC EXAMINATION: Histologic sections of all submitted blocks are examined by light microscopy. These findings, together with the gross examination, support the pathologic diagnosis. GROSS DESCRIPTION: A. The specimen, labeled and designated "Peña, M, " and designated on the requisition "colon, cecum biopsy," is received in formalin and consists of four perez-white soft tissue fragments measuring 0.2 to 0.4 cm, all specimens are submitted entirely in (A1). B. The specimen, labeled and designated "Peña, M, " and designated on the requisition "colon, rectum biopsy," is received in formalin and consists of three perez-white soft tissue fragments measuring 0.2 to 0.5 cm, all specimens are submitted entirely in (B1). [facility] (under the direct supervision of a pathologist) The Gross Description was prepared using a voice recognition system. The report was reviewed for accuracy; however, sound-alike word errors, addition and/or deletions may occur. If there is any question about this report, please contact Client Services. ADDITIONAL NOTES: Immunohistochemical and/or in situ hybridization studies if performed in this PATIENT NAME: AKIN PEÑA PATHOLOGY DATE OF : 45 REPORT #: [id number] PHYSICIAN: HEATHER COBURN PCP: LOREE JESUS MD REPORT IS CONFIDENTIAL AND NOT TO BE RELEASED WITHOUT AUTHORIZATION [facility] [address] [place], [place] [address] Signed case included appropriate positive controls that reacted as expected. This test was developed and its performance characteristics determined by [facility]. It has not been cleared or approved by the U.S. Food and Drug Administration. The FDA has determined that such clearance or approval is not necessary. This test is used for clinical purposes. It should not be regarded as investigational or for research. [facility] is certified under the Clinical Laboratory Improvement Amendments of 1988 (CLIA) as qualified to perform high complexity clinical laboratory testing. PERFORMING LABORATORY: Technical component was performed by [facility], [address] [place] [address] (CLIA# [id number]). Professional interpretation was performed by [facility], [address] [place] [id number] (CLIA#: [id number]). Diagnostician: Brenton Nuno MD Pathologist Electronically Signed 11/22/2023 Copies: ~ PATIENT NAME: AKIN PEÑA PATHOLOGY DATE OF : 45 REPORT #: [id number] PHYSICIAN: HEATHER COBURN PCP: LOREE JESUS MD REPORT IS CONFIDENTIAL AND NOT TO BE RELEASED WITHOUT AUTHORIZATION
== END 2023-11-16 12:56 | disposition home or self-care (01) ==
LOC: DS 10:52 → OPS 10:52 → DS 12:00 → OPS 12:56
PROVIDERS: Hospitalist; ATTEND Surgery
PROC: 0DBP8ZX Excision of Rectum, Via Natural or Artificial Opening Endoscopic, Diagnostic (ICD-10-PCS; 2023-11-16)
PROC: 0DBH8ZX Excision of Cecum, Via Natural or Artificial Opening Endoscopic, Diagnostic (ICD-10-PCS; principal; 2023-11-16 12:00)
DX: K57.30 Diverticulosis of large intestine without perforation or abscess without bleeding (principal); K64.8 Other hemorrhoids; Z80.0 Family history of malignant neoplasm of digestive organs; Z86.010 Personal history of colon polyps; Z88.5 Allergy status to narcotic agent; Z88.8 Allergy status to other drugs, medicaments and biological substances; Z79.82 Long term (current) use of aspirin; Z79.899 Other long term (current) drug therapy
CPT/HCPCS: 00811; 36415; 80048; 82306; 88305; J2001; J2704; J7121

== ENCOUNTER 2025-10-18 07:49 | Inpatient (IN) | payer OTHER, MEDICARE ==
[~2025-10-18] VITALS: Ht 152.4 cm; Wt 84.3 kg
[~2025-10-18 07:49] MED LIST changes: -CRESTOR10 MG PO; +PROLIA60 MG/1 ML SUB-Q
[2025-10-18] MEDS ORDERED: SODIUM CHLORIDE 0.9% 1,000 ML IV PRN ×2 (08:00→09:00)
[2025-10-18] MEDS ORDERED: AZITHROMYCIN 500 MG in DEXTROSE 5% 250 ML IV ONE (08:00)
[2025-10-18 08:16] LABS: BASOPHILS 0.3 % (0.1-1.2); EOSINOPHILS 0.4 % (0.7-5.8); LYMPHOCYTES 2.9 % (19.3-51.7); MCH 31.0 PG (25.6-32.2); MCHC 32.0 g/dL (32.2-35.5); MCV 96.9 fL (79.4-94.8); MONOCYTES 5.7 % (4.7-12.5); NEUTROPHILS 90.2 % (34.0-71.1); RBC 3.81 M/uL (3.93-5.22)
[2025-10-18 08:36] LABS: INR 1.12 (0.80-1.30); PROTIME 13.9 Sec (11.2-14.2)
[2025-10-18 08:38] LABS: ALT (SGPT) 22.0 U/L (14-59); AST (SGOT) 30.0 U/L (15-37); GLOMERULAR FILTRATION RATE,EST 66.0 mL/min (>60); PROTEIN, TOTAL 7.4 g/dL (6.4-8.2); UREA NITROGEN 20.0 mg/dL (7-18)
[2025-10-18 08:40] LABS: CORONAVIRUS COVID-19 AG NEGATIVE (NEGATIVE)
[2025-10-18 08:43] LABS: LACTIC ACID, BLOOD 1.9 mmol/L (0.4-2.0)
[2025-10-18 08:50] LABS: BLOOD/HGB, URINE LARGE (Negative); KETONE, URINE SMALL (Negative); LEUK ESTERASE, URINE NEGATIVE (negative); NITRITE, URINE POSITIVE (negative)
[2025-10-18 09:01] LABS: EPITHELIAL CELLS, URINE SQUAMOUS 1+ /lpf (0-1+)
[2025-10-18 09:02] LABS: BACTERIA, URINE 3+ /hpf (negative); CASTS, URINE NONE SEEN \\lpf; CRYSTALS, URINE NONE SEEN (0-1+); REFLEX CULTURE, URINE Yes (No)
[2025-10-18] MEDS ORDERED: ACETAMINOPHEN 325 MG TAB PO PRN (12:45)
[2025-10-18] MEDS ORDERED: SODIUM CHLORIDE 0.9% 1,000 ML IV SCH (12:45)
[2025-10-18 13:47] VITALS: BP 114/61
[2025-10-18] MEDS ORDERED: PANTOPRAZOLE SODIUM 40 MG TABEC PO SCH (14:16)
[2025-10-18] MEDS ORDERED: LEFLUNOMIDE20 MG PO (15:03)
[2025-10-18] MEDS ORDERED: OMEPRAZOLE40 MG PO (15:04)
[2025-10-18 15:05] VITALS: BP 114/61
[2025-10-18] MEDS ORDERED: OXYBUTYNIN CHLO10 MG PO (15:05)
[2025-10-18] MEDS ORDERED: GABAPENTIN400 MG PO (15:07)
[2025-10-18] MEDS ORDERED: TRIAMCINOLONE A15 G1 TOP (15:09)
[2025-10-18] MEDS ORDERED: DIPHENOXYLATE/ATROPINE 1 EA TAB PO SCH (15:28)
--- NOTE | 2025-10-18 15:36 | NUR ---
PT GIVEN ICE WATER. WAS ABLE TO SWALLOW PILLS W/O DIFFICULTY. RESTING COMFORTABLY. CALL LIGHT IN REACH. DENIES NEEDS.
--- NOTE | 2025-10-18 16:25 | NUR ---
PT RESTING QUIETLY IN BED, TOLERATED 1/2 SANDWICH AND 1 APPLESAUCE. O2 SATS 97-98%, O2 DECREASED TO 1LNC, SATS 96%. CALL BAEZ IN REACH, BED IN LOW POSITION AND LOCKED, SIDERAILS UP 4
[2025-10-18 17:14] VITALS: BP 116/53
[2025-10-18 18:08] VITALS: BP 116/53
[2025-10-18] MEDS ORDERED: DIPHENOXYLATE/ATROPINE 1 EA TAB PO ONE (18:30)
[2025-10-18] MEDS ORDERED: DIPHENOXYLATE/ATROPINE 1 EA TAB PO PRN (19:00)
--- NOTE | 2025-10-18 19:00 | NUR ---
PT CARED FOR T/O THE SHIFT WITHOUT INCIDENT. IV RESTART TO R FA X1 STICK. IV INFILTRATION TO R A/C DECREASING IN SIZE. PT HAS BEEN A&O X4 SINCE ADMISSION. TELE NSR 70'S. PT DENIES PAIN, NAUSEA, VOMITING. LEFT ARM ELEVATED ON PILLOW. SIDERAILS UP X4, BED IN LOW POSITION AND LOCKED, CALL BAEZ IN REACH.
--- NOTE | 2025-10-18 19:20 | NUR ---
shift report received from dayshift ghazala jensen. pt awake and resting in bed, on 0.5-1lnc, spo2 100%. pt titrated to room air, spo2 sustaining in mid 90's, will continue to monitor. rt rosita also in room. iv site wnl, fluids infusing wnl. previous infiltration site improving per ghazala jensen, bilateral arms elevated. scattered bruises noted to bue, small raised reddened area noted to left arm near ac area, per report similar appearance-will monitor for changes. lymphedema to left arm and ble, chronic. pt denies additional needs or concerns, call lights in reach.
[2025-10-18 20:30] VITALS: BP 135/66
--- NOTE | 2025-10-18 21:00 | NUR ---
ASSESSMENT COMPLETE, VSS AND I&O'S COLLECTED. DUREWICK REMAINS IN PLACE. pt A/OX4, REPORTS CHRONIC GENERALIZED PAIN, PRN TYLENOL GIVEN ALONG WITH SCHEDULED EVENING MED-SEE EMAR. pt REMAINS ON RA, LUNG SOUNDS CLEAR, VERY SLIGHT CRACKLES NOTED IN LLL, RESOLVED AFTER INSTRUCTED TO COUGH. pt DEMONSTRATED USE OF ACAPELLA, DENIES SOB, CHEST PAIN, NAUSEA. PEDAL AND RADIAL PULSES EQUAL BILATERALLY, pt DENIES NUMBNESS AND TINGLING. CHRONIC LYMPHEDEMA TO LUE AND BLE. BRUISE/REDDENED AREA OUTLINED, REMAINS UNCHANGED FROM START OF SHIFT. pt REPORTS SHE NOTICED IT AFTER HER ARM "GOT CAUGHT IN MY WALKER" WHEN pt FELL EARLIER AT HOME. DR WOMACK ROUNDED AND VISUALIZED SITE, NO NEW ORDERS RECEIVED. WILL CONTINUE TO MONITOR FOR CHANGES. IV SITE REMAINS WNL, BRISK BLOOD RETURN NOTED. pt REPOSITONED IN BED, SKIN INTACT TO BUTTOCKS. FRESH ICE WATER GIVEN, NO ADDITIONAL NEEDS OR CONCERNS. CALL LIGHT IN REACH.
[2025-10-18 21:40] VITALS: BP 135/66
--- NOTE | 2025-10-18 22:16 | NUR ---
ROUNDED ON pt, pt RESTING IN BED WITH EYES CLOSED. REMAINS ON RA, SPO2 95%. RR EVEN AND UNLABORED. pt BRIEFLY OPENED EYES WHILE ROUNDING, SMILED THEN RETURNED TO SLEEP. NO NEEDS OR CONCERNS VERBALIZED. IV SITE REMAINS WNL. CALL LIGHT IN REACH.
--- NOTE | 2025-10-18 22:57 | NUR ---
new bag iv fluids hung and infusing as directed, iv site wnl. new attends in place and lis care completed along with new brian, pt incontinent of urine. pt denies feeling wet, education provided. second rn keenan in room to assist. scant amount blanchable reddness noted near gluteal cleft/buttocks area, pt educated on changing positions in bed, pt veralized understanding, able to turn self in bed. pillow placed under left side and under rue. no additional needs or concerns verbalized, call light in reach. pt remains in room air, spo2 low to mid 90's.
[2025-10-19] VITALS (11 sets, daily range): BP systolic 117–145; BP diastolic 61–89
--- NOTE | 2025-10-19 00:08 | NUR ---
rounded on pt, pt resting in bed with eyes closed. remains on ra, rr even and unlabored. pt largely mouth breathes, spo2 95%, hr 80-sinus rhythm per tele monitor. no needs or concerns vebalized when pt opened eyes. call light in reach, bed alarm remains on for safety.
--- NOTE | 2025-10-19 01:11 | NUR ---
rounded on pt, no changes or concerns. pt continues to rest in bed with eyes closed. on ra, no distress noted. rr even and unlabored. iv site wnl, fluids continue to infuse as directed. call light in reach.
--- NOTE | 2025-10-19 02:17 | NUR ---
vss, attends remain dry. purewick remains in place. pt remains on ra, pt awoke to voice. a/o, denies chest pain, sob. tele remains in place-sinus rhythm, hr 70's. no acute changes to assessment. pillows placed under right side and right arm. no further needs, call light in reach. bed alarm on for safety.
--- NOTE | 2025-10-19 03:30 | NUR ---
ROUNDED ON pt, NO ACUTE CHANGES. RR EVEN AND UNLABORED, CALL LIGHT IN REACH. BED ALARM ON FOR SAFETY.
--- NOTE | 2025-10-19 04:56 | NUR ---
rounded on pt, pt awake and resting in bed. on ra, rr even and unlabored. assisted with raising hob, no nadditional needs or concerns verbalized. call light in reach. bed alarm on.
--- NOTE | 2025-10-19 04:57 | NUR ---
lab in room for am lab draw.
[2025-10-19 05:05] LABS: BASOPHILS 0.4 % (0.1-1.2); EOSINOPHILS 2.9 % (0.7-5.8); LYMPHOCYTES 11.2 % (19.3-51.7); MCH 31.5 PG (25.6-32.2); MCHC 32.7 g/dL (32.2-35.5); MCV 96.4 fL (79.4-94.8); MONOCYTES 10.5 % (4.7-12.5); NEUTROPHILS 74.7 % (34.0-71.1); RBC 3.30 M/uL (3.93-5.22)
--- NOTE | 2025-10-19 05:26 | NUR ---
vss, fresh ice water provided. scant amount incontinent urine noted, new purewick provided, lis care done. when changing briefs, right side w/ reddened area noted where briefs rubbed. pt educated, left side wnl. new attends in place. iv site wnl, fluids infusing wnl. brisk blood return remains noted. pt boosted in bed, ble elevated with pillows. p eating an applesauce. no additional needs or concerns, call light in [facility] and bed alarm on for safety.
[2025-10-19 05:28] LABS: ALT (SGPT) 33.0 U/L (14-59); AST (SGOT) 76.0 U/L (15-37); GLOMERULAR FILTRATION RATE,EST 89.0 mL/min (>60); PHOSPHORUS, INORGANIC 1.7 mg/dL (2.5-4.9); PROTEIN, TOTAL 6.0 g/dL (6.4-8.2); UREA NITROGEN 15.0 mg/dL (7-18)
--- NOTE | 2025-10-19 06:32 | NUR ---
new bag iv fluids hung and infusing as directed. iv site wnl. no needs or concerns verbalized from pt, call light in reach and bed alarm on.
--- NOTE | 2025-10-19 07:15 | NUR ---
REPORT REC'D FROM JONG CARTER. MET WITH PATIENT, RESTING QUIETLY IN BED. NO ACUTE DISTRESS NOTED, IV INFUSING NS @ 125ML/HR TO R FA IV. PT ON RA. PT REPORTS FEELING A "LITTLE BLOATED". PT PROVIDED WARMED PRUNE JUICE AND COFFEE WHILE AWAITING BREAKFAST. CALL BAEZ IN REACH, BED IN LOW POSITION AND LOCKED, SIDERAILS UP X4. PT INSTRUCTED TO CALL FOR ASSISTANCE PRN. VERBALIZED UNDERSTANDING.
[2025-10-19] MEDS ORDERED: POTASSIUM PHOSPHATE 30 MMOL in DEXTROSE 5% 500 ML IV ONE (08:00)
[2025-10-19] MEDS ORDERED: MAGNESIUM SULFATE 2 GM/50 ML BAG IV ONE (08:00)
--- NOTE | 2025-10-19 08:55 | NUR ---
medications reconciled using pharmacy records and patient interview. patient takes leflunomide (Arava) 20mg daily for Rheumatoid arthritis and desires to take in while inpatient. she will have someone bring it in for her
[2025-10-19] MEDS ORDERED: AZITHROMYCIN 500 MG in DEXTROSE 5% 250 ML IV SCH (09:00)
[2025-10-19] MEDS ORDERED: FLUOXETINE HCL 20 MG CAP PO SCH (09:00)
[2025-10-19] MEDS ORDERED: ENOXAPARIN SODIUM 40 MG/0.4 ML SYR SUB-Q SCH (09:00)
[2025-10-19] MEDS ORDERED: ASPIRIN 81 MG TABEC PO SCH (09:00)
--- NOTE | 2025-10-19 09:23 | NUR ---
pt needing to use bsc. transfered use fww, 2pa. pt was able to stand and pivot with limited assistance to a from commode. primary rn at the bedside policy value calculator providing adls.
--- NOTE | 2025-10-19 09:32 | NUR ---
PT OOB TO BSC FOR 2ND BM OF THE DAY. PT A LITTLE SHAKEY STANDING WITH WALKER, MIN ASSIST X2. PT PLACED IN CHAIR. PT IN TO SEE PATIENT.
--- NOTE | 2025-10-19 09:45 | NUR ---
pt session with pt, hr noted to be in 100-110's. PT ALSO REPORTED NAUSEA WITH SCANT AMOUNT OF MUCOUS PRODUCED. PT REQUESTED TO HAVE ZOFRAN. ADMINISTERED 4MG IVP ZOFRAN. PT SITTING IN RECLINER, LEGS ELEVATED AND WHEELS LOCKED. CALL BAEZ AND PERSONAL ITEMS IN REACH. TELEMETRY SR 80'S. QT 432. PT INSTRUCTED TO CALL FOR ASSISTANCE PRN. VERBALIZED UNDERSTANDING.
--- NOTE | 2025-10-19 10:16 | NUR ---
IN TO SEE PATIENT
[2025-10-19] MEDS ORDERED: ACETAMINOPHEN 500 MG TAB PO SCH (10:29)
[2025-10-19] MEDS ORDERED: PHARMACY RENAL DOSE ADJUSTMENT 1 DOSE MISC PO SCH (12:00)
[2025-10-19] MEDS ORDERED: LEFLUNOMIDE 20MG PO SCH (13:19)
--- NOTE | 2025-10-19 13:32 | NUR ---
PT USED THE COMMODE, SHE IS WEAK WITH AMBULATION. PT THEN RETURNED TO HER BED. THERE IS A VISITOR IN THE ROOM, AND THE CALL LIGHT IS WITHIN REACH OF THE PT. PT HAS A CUP OF WATER NEAR HER AND REPORTED NO NEED TO FRESHEN UP OR ADD ICE. PT REPORTS NEEDING NOTHING MORE AT THIS TIME.
--- NOTE | 2025-10-19 13:50 | NUR ---
DR. LAYNE NOTIFIED PT US RESULTS, BC RESULT AND PT FAMILY BRINGING IN HOME MEDICATIONS FOR RA AND VERIFIED BY PHARMACY.
--- NOTE | 2025-10-19 14:45 | NUR ---
PT RESTING IN BED, CAREGIVER AT BEDSIDE. NO C/O VOICED. CALL BAEZ IN REACH, BED IN LOW POSITION AND LOCKED, SIDERAILS UP X4.
--- NOTE | 2025-10-19 17:15 | NUR ---
PT REPORTS FEELING "PUFFIER" THAN USUAL AND STATES SHE TAKES LASIX AT HOME. PT IS UNSURE OF DOSE. DR. LAYNE NOTIFIED, ORDERS REC'D FROM LASIX AND DC IVF.
[2025-10-19] MEDS ORDERED: FUROSEMIDE 20 MG TAB PO SCH (17:20)
--- NOTE | 2025-10-19 18:21 | NUR ---
PT CARED FOR T/O SHIFT. PT UP TO CHAIR X3, USING BSC PRN AND REPORTS FEELING "MUCH BETTER" PT NOTED TO BE MORE STABLE ON FEET, REQUIRING ON SBA WITH FWW. PT REC'D ELECTROLYTE REPLACEMENTS WITH LAB DRAWS IN AM. PT MEDICATED X 1 WITH TYLENOL FOR PAIN, DECLINES LOMOTIL AND PROVIDED PO LASIX. PT REMAINS IN RECLINER AT THIS TIME, WHEELS LOCKED, CALL BAEZ AND PERSONAL ITEMS IN REACH.
--- NOTE | 2025-10-19 20:59 | EKG ---
[facility] [address] [place] [address] Signed Normal sinus rhythm Normal ECG When compared with ECG of 11-NOV-2022 06:08, Vent. rate has increased BY 30 BPM QRS axis shifted left T wave inversion no longer evident in Lateral leads Confirmed by Iván Layne MD () on 10/19/2025 8:58:46 PM Electronically Signed By: IVÁN LAYNE MD 10/19/252058 PATIENT NAME: AKNI ALBERT Electrocardiogram DATE OF : 45 PHYSICIAN: IVÁN LAYNE MD REPORT #: [id number] REPORT IS CONFIDENTIAL AND NOT TO BE RELEASED WITHOUT AUTHORIZATION
--- NOTE | 2025-10-19 21:02 | NUR ---
Pt awake, alert and oriented, on room air, lungs clear bilat, no cough. edematoues generalized edema to L arm and LE, LE elevated, SL RFA patent. bruising LAC. attends and purewick in place. LBM today.
--- NOTE | 2025-10-19 23:10 | NUR ---
PT RESTING, EYES CLOSED, NO S/SX DISTRESS, PUREWICK IN PLACE. LE ELEVATED, ON ROOM AIR
[2025-10-20] VITALS (11 sets, daily range): BP systolic 113–158; BP diastolic 66–94
--- NOTE | 2025-10-20 01:38 | NUR ---
Patient awake in bed, no distress. Chapstick provided to patient per her request. Patient denies needs, personal supplies and call light within reach.
[2025-10-20 05:24] LABS: BASOPHILS 0.3 % (0.1-1.2); EOSINOPHILS 5.5 % (0.7-5.8); LYMPHOCYTES 15.4 % (19.3-51.7); MCH 31.2 PG (25.6-32.2); MCHC 32.3 g/dL (32.2-35.5); MCV 96.6 fL (79.4-94.8); MONOCYTES 11.0 % (4.7-12.5); NEUTROPHILS 67.5 % (34.0-71.1); RBC 3.24 M/uL (3.93-5.22)
[2025-10-20 05:46] LABS: ALT (SGPT) 38.0 U/L (14-59); AST (SGOT) 65.0 U/L (15-37); GLOMERULAR FILTRATION RATE,EST 91.0 mL/min (>60); PHOSPHORUS, INORGANIC 2.3 mg/dL (2.5-4.9); PROTEIN, TOTAL 6.1 g/dL (6.4-8.2); UREA NITROGEN 6.0 mg/dL (7-18)
--- NOTE | 2025-10-20 06:16 | NUR ---
Patient reports nausea. Admin zofran 4mg iv at this time. Saltine crackers provided to patient. No further needs. Call light within reach of pt
--- NOTE | 2025-10-20 06:44 | NUR ---
Patient awake in bed, no acute distress. Breakfast ordered at this time per patient request.
--- NOTE | 2025-10-20 07:15 | NUR ---
REPORT REC'D FROM JONG TREVINO. PT RESTING COMFORTABLY IN BED AT THIS TIME, NO ACUTE DISTRESS OR C/O NOTED. PT PROVIDED WITH AM CUP OF COFFEE. SIDERAILS UP X3, CALL BAEZ IN REACH, BED IN LOW POSITION AND LOCKED. INSTRUCTED TO CALL FOR ASSISTANCE, VERBALIZED UNDERSTANDING.
--- NOTE | 2025-10-20 09:00 | NUR ---
Spoke with Ngoc and her daughter Mai. Pt lives alone and has a cg through the [employer] and daughter also recieves some CG hours for the pt. Pt has a ramp and multile pieces of DME. Pt denies issues getting in or out of her home. Pt plans on going home on dc. Daughter and cg grocery shop for pt and daughter provides hot food. Pt does not eat most of it as she feels there is too much for her. Pt denies any financial or safety concern. During my visit the daughter notices pt has a DNR band on her wrist and is upset by this. SHe states pt does not want to be a DNR. Pt disagrees but eventually states I need to ask her daughter. We then discussed I will ask Dr. Norris to return and discuss DNR with them as it is really up to the pt. Pt plans on return to home when medically cleared. Dr Norris updated to my visit and will speak with pt and daughter.
[2025-10-20] MEDS ORDERED: DEXTROSE 5% 250 ML IV ONE (09:21)
--- NOTE | 2025-10-20 10:10 | NUR ---
UR CLINICAL REVIEW: 2 MN FOR VERSALUS-PER QA TEST LEAD MEETS INPT FOR PNEMONIA/UTI WITH NEED FOR IV ABX, SUPPLEMENTAL OXYGENA AND SERIAL LABS MEDICARE INPT 10/18/25 @ 1240 ORDER MATCHES REG NO AUTH REQUIRED PER MEDICARE GUIDELINES DISCHARGE TO HOME WHEN STABLE 10/21/25 DC REVIEW
--- NOTE | 2025-10-20 10:15 | NUR ---
PATIENT SITTING UP IN BED AT THIS TIME. VITALS AND I&O'S DONE AND CHARTED. FAMILY IN ROOM. CALL LIGHT IN REACH. NO FURTHER NEEDS AT THIS TIME.
--- NOTE | 2025-10-20 11:00 | NUR ---
Stopped in the room as Dr. Norris is discussing DNR/DNI info with pt.
--- NOTE | 2025-10-20 11:59 | NUR ---
PT SITTING UP IN CHAIR FOR LUNCH. VISITORS AT BEDSIDE. NO C/O VERBALIZED. PENDING DISCHARGE WHEN MEDICALLY CLEARED. CALL BAEZ IN REACH, RECLINER WHEELS LOCKED. PT INSTRUCTED TO CALL FOR ASSISTANCE.
--- NOTE | 2025-10-20 13:30 | NUR ---
POLST form completed with pt and daughter. Pt requests to be a DNR/DNI. Form left for Dr. Norris to sign. Pt would like a in [place]. She would prefer [facility]. I called and they are not accepting any patients at this time. I did place pt on a list for [facility] as [facility] their second choice. I have an updated list of physicians in the area and I gave her this list. Pt does not want to cont. to drive to [place].
--- NOTE | 2025-10-20 13:39 | NUR ---
PATIENT SITTING IN CHIAR AT THIS TIME. VITALS AND I&O'S DONE AND CHARTED. CALL LIGHT IN REACH. NO FURTHER NEEDS AT THIS TIME.
--- NOTE | 2025-10-20 15:30 | NUR ---
REPORT RECIEVED FROM JONG MEJIA. PATIENT SITTING UP IN HER CHAIR AND REPORTS NEEDING TO USE THE BATHROOM. PATIENT ASSISTED UP TO THE BATHROOM VIA 1PERSON ASSIST WITH THE FRONT WHEEL WALKER. PATIENT INSTRUCTED TO USE PULL CORD WHEN FINSIHED. PATIENT VERBALIZED UNDERSTANDING. PULL CORD IS WITHIN REACH.
--- NOTE | 2025-10-20 15:44 | NUR ---
PT CARED FOR T/O SHIFT. NO C/O OR ACUTE DISTRESS NOTED. PT HAS HAD FAMILY VISITORS AT BEDSIDE MOST OF THE DAY. PT ALERT AND ORIENTED X3. HRR, L/S CLEAR, TELE#1 IN USE, SR 70-80'S. ABD SOFT, BMX1 TODAY. CONTINUED EDEMA TO LUE AND BLE. PT SESSION WITH PT/OT THIS AM. HAS REMAINED IN RECLINER. HAS TOLERATED PO WITHOUT C/O. IV SL TO R FA PATENT. CALL BAEZ IN REACH, BED IN LOW POSITION AND LOCKED. PT APPROPRIATE WITH CALL BAEZ. REPORT GIVEN TO ONCOMING RN.
--- NOTE | 2025-10-20 16:15 | NUR ---
HOURLY ROUNDING PATIENT MAKING A CHANGE TO HER DINNER ORDER, NO REQUEST AT THIS TIME. BOARD UPDATED AND CALL LIGHT HAS BEEN PLACED WITHIN REACH
--- NOTE | 2025-10-20 19:28 | NUR ---
VERBAL REPORT RECEIVED BY JONG SMITH. PATIENT IS RESTING AWAKE IN BED AT THIS TIME. RESPIRATORY THERAPY IN ROOM AT THIS TIME. PATIENT DENIES ANY NEEDS. CALL LIGHT WITHIN REACH.
--- NOTE | 2025-10-20 19:28 | NUR ---
VERBAL REPORT RECEIVED BY JONG SMITH. PATIENT IS AWAKE IN BED AT THIS TIME. FRESH ICE WATER PROVIDED PER PATIENT REQUEST. PATIENT REPOSITIONED IN BED FOR COMFORT, DENIES ANY FURTHER NEEDS AT THIS TIME. CALL LIGHT WITHIN REACH.
--- NOTE | 2025-10-20 21:18 | NUR ---
MEDICATION ADMINSTRATION COMPLETE. PATIENT COMPLAINS OF 9/10 LEFT LEG PAIN, PRN PAIN MEDICATION ADMINISTERED (SEE EMAR). PATIENT COMPLAINS OF NAUSEA, PRN MEDICATION GIVEN (SEE EMAR). PATIENT DENIES SOB. REPOSITIONED FOR COMFORT. FALL PRECAUTIONS IN PLACE FOR PATIENT SAFETY. CALL LIGHT WITHIN REACH.
--- NOTE | 2025-10-20 23:44 | NUR ---
PATIENT SITTING UP IN BED READING NEWSPAPER. SNACKS PROVIDED PER PATIENT REQUEST. FALL PRECAUTIONS IN PLACE FOR PATIENT SAFETY. NO FUTHER NEEDS AT THIS TIME. CALL LIGHT WITHIN REACH.
[2025-10-21] VITALS (7 sets, daily range): BP systolic 131–149; BP diastolic 75–91
--- NOTE | 2025-10-21 00:57 | NUR ---
PATIENT RESTING IN BED EYES CLOSED, RESPIRATIONS EVEN AND UNLABORED. FALL PRECAUTIONS IN PLACE FOR PATIENT SAFETY. CALL LIGHT AND PERSONAL BELONGINGS WITHIN REACH.
--- NOTE | 2025-10-21 02:20 | NUR ---
PATIENT RESTING IN BED AT THIS TIME. FRESH ICE WATER PROVIDED. VSS. PATIENT DENIES ANY FURTHER NEEDS. CALL LIGHT WITHIN REACH.
--- NOTE | 2025-10-21 04:20 | NUR ---
PATIENT IS SITTING UP IN BED AT THIS TIME WATCHING TV. PATIENT DENIES ANY NEEDS AT THIS TIME. FALL PRECAUTIONS IN PLACE FOR PATIENT SAFETY. CALL LIGHT WITHIN REACH.
[2025-10-21 05:28] LABS: BASOPHILS 0.4 % (0.1-1.2); EOSINOPHILS 4.4 % (0.7-5.8); LYMPHOCYTES 20.7 % (19.3-51.7); MCH 30.7 PG (25.6-32.2); MCHC 32.0 g/dL (32.2-35.5); MCV 95.9 fL (79.4-94.8); MONOCYTES 9.8 % (4.7-12.5); NEUTROPHILS 64.5 % (34.0-71.1); RBC 3.42 M/uL (3.93-5.22)
--- NOTE | 2025-10-21 05:28 | NUR ---
PATIENT RESTING IN BED AWAKE WATCHING TV. NEW PUREWICK PLACED AT THIS TIME, JANKI CARE PERFORMED. VSS. PATIENT REPOSITIONED FOR COMFORT. FALL PRECAUTIONS IN PLACE. PATIENT DENIES FURTHER NEEDS. CALL LIGHT WITHIN REACH.
[2025-10-21 06:06] LABS: ALT (SGPT) 42.0 U/L (14-59); AST (SGOT) 56.0 U/L (15-37); GLOMERULAR FILTRATION RATE,EST 93.0 mL/min (>60); PROTEIN, TOTAL 6.4 g/dL (6.4-8.2); UREA NITROGEN 7.0 mg/dL (7-18)
--- NOTE | 2025-10-21 07:10 | NUR ---
RECEIVED REPORT FROM ANTONIO RN. PATIENT LAYING SUPINE IN BED, AWAKE AND ALERT, ANSWERED QUESTIONS APPORPRIATLY. PATIENT DENIES NEEDS AT THIS TIME. CALL LIGHT IN REACH.
--- NOTE | 2025-10-21 09:20 | NUR ---
Spoke with Ngoc. Updated she was placed [facility] the [facility] for [facility] and they have scheduled her to see Rodolfo VICKERS. She will need to request an MD at this visit. We discussed again, I was unable to get a pcp from [facility] as they are not accepting any new pts. She states this is fine. I also asked her about needing further CG orders. She denies this and states this is her daughters idea. She would prefer to cont. with the cg she has in place and she comes in additional hours when needed. Pt will dc to home today. She will call her cg to give her a ride. No further needs.
--- NOTE | 2025-10-21 10:04 | NUR ---
SCEDULED MEDICATIONS GIVEN PER EMAR. PATIENT UP TO BATHROOM WITH 1PA FWW STEADY GAIT BUT GENERALIZED WEAKNESS ON L SIDE. VS OBTAINED AND DOCUMETNED WITH ASSITANCE FROM OLGA BROWN. PATIENT SITTING IN RECLINER FEET ELEVATED. PATIENT REQUESTED FOR PUREWICK TO BE PLACED SO SHE DOESNT "FEEL SO WORN OUT WHEN I GO HOME". PERICARE PERFORMED AND NEW BRIEF PLACED. NO NEEDS AT THIS TIME. CALL LIGHT IN REACH.
[2025-10-21] MEDS ORDERED: CEFPODOXIME PR200 MG PO (10:06)
== END 2025-10-21 12:53 | disposition home health service (06) | DRG 871 ==
LOC: ED 07:49 → MS 12:43
PROVIDERS: Emergency Medicine; ADMIT Family Medicine; ATTEND Family Medicine
DX: A41.9 Sepsis, unspecified organism (principal); J18.9 Pneumonia, unspecified organism; N39.0 Urinary tract infection, site not specified; E87.20 Acidosis, unspecified; F32.A Depression, unspecified; M06.9 Rheumatoid arthritis, unspecified; I10 Essential (primary) hypertension; Z66 Do not resuscitate; I95.1 Orthostatic hypotension; R53.1 Weakness; K52.9 Noninfective gastroenteritis and colitis, unspecified; M19.90 Unspecified osteoarthritis, unspecified site; K21.9 Gastro-esophageal reflux disease without esophagitis; N32.81 Overactive bladder; E78.5 Hyperlipidemia, unspecified; E87.6 Hypokalemia; E83.42 Hypomagnesemia; E83.39 Other disorders of phosphorus metabolism; M79.89 Other specified soft tissue disorders; Z86.19 Personal history of other infectious and parasitic diseases; Z90.49 Acquired absence of other specified parts of digestive tract; Z95.5 Presence of coronary angioplasty implant and graft; Z87.442 Personal history of urinary calculi; Z98.890 Other specified postprocedural states; Z88.8 Allergy status to other drugs, medicaments and biological substances; Z88.5 Allergy status to narcotic agent; Z79.82 Long term (current) use of aspirin; Z79.899 Other long term (current) drug therapy; Z90.89 Acquired absence of other organs; W01.198A Fall on same level from slipping, tripping and stumbling with subsequent striking against other object, initial encounter
CPT/HCPCS: 36415; 70450; 71045; 73030; 76882; 80053; 81001; 83605; 83735; 84100; 85025; 85610; 85730; 87088; 93005; 93010; 94667; 94760; 94799; 96365; 96368; 96375; 97116; 97162; 97166; 97530; 97535; 99285-25; A9270; J0456; J0696; J1650; J2405; J3475; J7030; J7060